=== PATIENT | female | born 1980 | race Caucasian/White ===

== ENCOUNTER → 2019-04-01 | Outpatient (CLI) | payer OTHER ==
[~2019-04-01] MED LIST: GADOBUTROL 10 MMOL/10 ML (GADAVIST) VIAL IV ONE
--- NOTE | 2019-04-01 09:28 | Diagnostic Imaging Report ---
PROCEDURE: MR imaging of the brain with and without contrast. TECHNIQUE: Multiplanar, multisequence MR imaging of the brain was performed with and without contrast. INDICATION: Strabismus. Double vision. COMPARISON: none FINDINGS: No acute ischemia, mass, or hemorrhage. Nonspecific T2/FLAIR hyperintense signal is visualized in the subcortical white matter of the bilateral frontal lobes. No abnormal enhancement. Prominent perivascular spaces visualized in the left basal ganglia. The ventricles, cortical sulci, and basilar cisterns are symmetric and unremarkable. The sellar and suprasellar regions have a normal appearance. The major intracranial flow voids are intact. The brainstem and posterior fossa are unremarkable. The paranasal sinuses and mastoid air cells demonstrate normal signal characteristics. The globes and orbits are symmetric and unremarkable. No enhancement or abnormal signal seen along the course of the optic nerves or optic chiasm. The extraocular muscles are symmetric and have an unremarkable appearance. No inflammatory changes or masses are seen in the post septal soft tissues. The cavernous sinuses demonstrate normal signal characteristics. The scalp and calvarium have a normal appearance. IMPRESSION: 1. No acute ischemia, mass, or hemorrhage. No abnormal enhancement. 2. Unremarkable appearance of the globes and orbits. No evidence of mass or abnormal enhancement. Please note this is not a dedicated MRI of the orbits. If symptoms persist consider dedicated orbital MRI. 3. Nonspecific T2/FLAIR hyperintense signal within the subcortical white matter of the bilateral frontal lobes. These findings may represent sequelae of migraine versus chronic microvascular disease. Other etiologies such as multiple sclerosis or postinflammatory sequela are not excluded. Recommend correlation with patient history and symptoms and if indicated CSF analysis. Dictated by: Dictated on workstation # [id number]
== END ==
LOC: RAD 08:07
PROVIDERS: ATTEND Nurse Practitioner Family
DX: H50.9 Unspecified strabismus (principal)
CPT/HCPCS: 70553

== ENCOUNTER → 2021-01-30 | Outpatient (CLI) | payer OTHER ==
--- NOTE | 2021-01-30 13:07 | Diagnostic Imaging Report ---
INDICATION: Fall with injury playing volleyball. TIME OF EXAM: 12:28 PM 4 views of the wrist were obtained including a navicular view. Distal radius ulna are intact. Carpal bones are intact. Specifically, the navicular appears to be intact. The metacarpals are intact. No fractures are seen. IMPRESSION: No acute bony abnormality is detected. Dictated by: Dictated on workstation # [id number]
== END ==
LOC: RAD FS 12:16
PROVIDERS: ATTEND Nurse Practitioner
DX: S69.91XA Unspecified injury of right wrist, hand and finger(s), initial encounter (principal); Y93.68 Activity, volleyball (beach) (court)
CPT/HCPCS: 73110

== ENCOUNTER → 2021-02-26 | Outpatient (CLI) | payer OTHER | LOC: LABNPT 15:15 | PROVIDERS: ATTEND Registered Nurse Emergency | DX: Z20.822 Contact with and (suspected) exposure to COVID-19 (principal) | CPT/HCPCS: 87636 ==